=== PATIENT | female | born 1980 | race Caucasian/White ===

== ENCOUNTER 2017-07-17 04:09 | Emergency (ER) | payer BC ==
[2017-07-17] MEDS ORDERED: Milk Of Magnesia 30 ML UDCUP ONE (04:34)
[2017-07-17] MEDS ORDERED: Lidocaine Viscous Sol 2% 15 ml UD Cup ONE (04:34)
[2017-07-17 04:47] LABS: #Basophils 0.1 thou/uL (0.0-0.2); #Eosinphils 0.3 thou/uL (0.0-0.7); #Lymphocytes 2.3 thou/uL (1.20-3.40); #Monocytes 0.6 thou/uL (0.11-0.59); #Neutrophils 3.5 thou/uL (1.40-6.50); %Basophils 0.9 % (0.0-1.0); %Eosinophils 4.5 % (0.0-10.0); %Lymphocytes 33.6 % (21.0-51.0); %Monocytes 9.3 % (0.0-10.0); %Neutrophils 51.8 % (42.0-75.0); Hemoglobin 14.5 g/dL (12.0-16.0); Mean Corpuscular HGB CONC 33.4 g/dL (32.0-36.0); Mean Corpuscular Hemoglobin 27.6 pg (27.0-31.0); Mean Corpuscular Volume 82.9 fl (81.0-99.0); Mean Platelet Volume 7.2 fL (7.4-10.4); Platelet Count 268 thou/uL (130-400); RBC Distribution Width 11.8 % (11.5-14.5); Red Blood Cell (RBC) Count 5.24 mill/uL (4.20-5.40); White Blood Cell (WBC) Count 6.7 thou/uL (4.8-10.8)
[2017-07-17 05:00] LABS: ALT (SGPT) 8 U/L (8-55); AST (SGOT) 8 U/L (5-34); Albumin 3.8 g/dL (3.5-5.0); Alkaline Phosphatase 65 U/L (40-150); Anion Gap 10 mmol/L (10-20); BUN (Urea Nitrogen) 9 mg/dL (7.0-18.7); Bilirubin, Total 0.3 mg/dL (0.2-1.2); CK (CPK) 75 U/L (29-168); Calc. Creatinine Clearance 0 mL/min (70-130); Calcium 8.8 mg/dL (7.8-10.44); Carbon Dioxide 20 mmol/L (22-29); Chloride 108 mmol/L (98-107); Estimated GFR-MDRD 87; Globulin 3.4 g/dL (2.4-3.5); Glucose 94 mg/dL (70-105); Lipase 42 U/L (8-78); Potassium 3.9 mmol/L (3.5-5.1); Protein, Total 7.2 g/dL (6.0-8.3); Sodium 134 mmol/L (136-145)
[2017-07-17 05:07] LABS: BHCG - Serum Negative (NEGATIVE); Pregs Control Background? CLEAR/WHITE (CLR/WHITE); Pregs Control Bar Appear? YES (CONTROL BAR)
[2017-07-17 05:11] LABS: Troponin I Less than 0.010 ng/mL (< 0.028)
[2017-07-17 05:28] LABS: Bilirubin Negative (Negative); Blood, Urine Negative (Negative); Clarity CLEAR (Clear); Glucose, Urine (Dipstick) Negative (Negative); Leukocyte Negative (Negative); Nitrite Negative (Negative); Protein, Urine (Dipstick) Negative (Neg-Trace); Specific Gravity, Urine 1.022 (1.002-1.036); Urobilinogen 0.2 mg/dL (0.2-1.0); pH, Urine 5.5 (5.0-9.0)
--- NOTE | 2017-07-17 07:57 | RAD ---
PORTABLE CHEST 1 VIEW: DATE: 07/17/17. TIME: 4:35 a.m. HISTORY: Nausea, vomiting. FINDINGS: The heart size is normal. The lungs are expanded without focal areas of consolidation, pneumothorax, or pleural effusions. IMPRESSION: No radiographic evidence of acute cardiopulmonary process. POS: [facility]
--- NOTE | 2017-07-17 08:20 | CT ---
PRELIMINARY REPORT/[facility]/EMERGENCY AFTER HOURS PROCEDURE: EXAM: CT Abdomen and Pelvis Without Intravenous Contrast CLINICAL HISTORY: 36 years old, female; Pain; Abdominal pain; Flank; Right; Patient HX: Rt sided pain TECHNIQUE: Axial computed tomography images of the abdomen and pelvis without intravenous contrast. All CT scans at this facility use one or more dose reduction techniques, viz.: automated exposure control; ma/kV adjustment per patient size (including targeted exams where dose is matched to indication; i.e. head) ; or iterative reconstruction technique. COMPARISON: No relevant prior studies available. FINDINGS: The lung bases are clear. Kidneys: No definite intrarenal calculus. Suspect a small cortical calcification in the right kidney. No hydronephrosis of either kidney. No visible ureteral calculus. No perinephric fluid. Prior cholecystectomy, no significant biliary tree dilation. Unremarkable appearance of the liver, spleen, adrenal glands, and pancreas. No free air, ascites, or bowel distention. No evidence for abdominal aortic aneurysm. No retroperitoneal adenopathy. CT pelvis: The appendix is visualized and appears normal. There are no CT findings to strongly suggest diverticulitis. No abnormal mass or fluid collection in the pelvis. IMPRESSION: No hydronephrosis of either kidney. No visible ureteral calculus. Prior cholecystectomy, no significant biliary tree dilation. Normal appendix. No free air or bowel distention. Other findings discussed above. Thank you for allowing us to participate in the care of your patient. Dictated and Authenticated by: Dorian Esquivel MD 07/17/2017 6:40 AM Central Time ([place] & [place]) FINAL REPORT CT OF ABDOMEN AND PELVIS PERFORMED WITHOUT CONTRAST ENHANCEMENT: HISTORY: Right flank pain. FINDINGS: The lung bases are clear of infiltrate. The liver, spleen, and pancreas regions appear unremarkable. Gallbladder has been removed. Right and left adrenal glands and right and left kidneys are normal in size. No definitive renal ramon culi. No obstruction or ureteral calculus. There is a tiny faint punctate nonobstructing mid pole r ight renal calculus. No significant periaortic or mesenteric adenopathy. CT OF PELVIS PERFORMED WITHOUT CONTRAST ENHANCEMENT: The appendix is normal. There is no evidence of adenopathy or mass or free fluid. There appear to b e some follicles involving the adnexa. IMPRESSION: 1. Normal appendix. 2. No evidence of any ureteral calculus. There is a tiny nonobstructing mid pole right renal calcul us. 3. Postop cholecystectomy change. 4. This report is in agreement with the temporary report issued by [facility].
== END 2017-07-17 07:01 | disposition home or self-care (01) ==
LOC: ERS 04:09
DX: R10.11 Right upper quadrant pain (principal)
CPT/HCPCS: 36415; 71045; 74176; 80053; 81003; 82550; 82553; 83690; 84484; 84703; 85025; 93005